=== PATIENT | female | born 1975 | race Caucasian/White ===

== ENCOUNTER 2016-11-21 19:07 | Emergency (ER) | payer OTHER ==
[~2016-11-21] VITALS: Ht 162.6 cm; Wt 73.0 kg
[2016-11-21 19:13] VITALS: Ht 162.6 cm; Wt 73.0 kg
[2016-11-21] MEDS ORDERED: FAMOTIDINE 20 MG TAB PO STA (20:56)
[2016-11-21] MEDS ORDERED: LIDOCAINE/MYLANTA 40 ML BTL PO STA (20:56)
--- NOTE | 2016-11-21 21:10 | ERD ---
ER Documentation Chief Complaint Date/Time DATE: 11/21/16 Chief Complaint Epigastric abdominal pain HPI The patient is a 41-year-old female who presents to the Emergency Department with complaint of epigastric abdominal pain. The patient reports that earlier today she was seen by her dentist to have tooth retraction of tooth #19. After returning home and eating, the patient had developed some dental pain, and therefore took two of her prescribed medications: ibuprofen 800 mg and Tylenol # 3. Then, approximately 30 minutes later, she took a dose of her Amoxicillin. The patient notes that shortly afterwards she developed a burning pain to her epigastric region of her abdomen. The pain is constant, but described as mild. She rates her current pain as 4-5 out of 10. She denies any associated nausea, vomiting or diarrhea. Denies any black or bloody stools. Denies dysuria, urinary frequency, urinary urgency, hesitancy, hematuria, flank pain. Denies headache, dizziness, weakness, fevers, sweats, chills. Denies history of similar symptoms in the past. No other complaints at this time. ROS All systems reviewed and are negative except as per history of present illness. Medications Home Meds Active Scripts Ranitidine Hcl* (Zantac*) 150 Mg Tablet, 150 MG PO BID Y for EPIGASTRIC PAIN, # 30 TAB Prov:ANNE COELLO PA-C 11/22/16 Allergies Allergies: Coded Allergies: No Known Allergy (Unverified , 11/21/16) PMhx/Soc Medical and Surgical Hx: pt denies Medical Hx History of Surgery: Yes (cholecysectomy) Anesthesia Reaction: No Hx Alcohol Use: No Hx Substance Use: No Hx Tobacco Use: No Smoking Status: Never smoker Physical Exam Vitals Vital Signs Date Time Temp Pulse Resp B/P Pulse Ox O2 Delivery O2 Flow Rate FiO2 11/22/16 00:27 98.7 53 20 120/60 100 Room Air 11/21/16 19:13 98.3 59 20 128/58 100 Physical Exam GENERAL: Well-developed, well-nourished, female, in no acute distress. HEENT: Head is normocephalic, atraumatic. No scleral pallor or icterus. Pupils equal, round and reactive to light. Conjunctiva pink. Moist mucous membranes. Clear oropharynx. No pharyngeal erythema or exudates. Tooth #19 s/p extraction. No bleeding. No swelling. No drainage. No trismus. No stridor. No excessive drooling. Phonation is normal. No submandibular swelling. No brawny induration. NECK: Supple. No masses, no tenderness, no lymphadenopathy. Trachea midline. RESPIRATORY: Lungs are clear to auscultation bilaterally. No rales, rhonchi or wheezing. Equal breath sounds. Normal expiratory effort. CARDIOVASCULAR: Regular rate and rhythm. S1 and S2 normal. Distal pulses are palpable, 2+ bilaterally. Capillary refill is less than 2 seconds. GASTROINTESTINAL: Abdomen is soft, nontender and nondistended. No guarding, no rebound tenderness. Normal bowel sounds. No gross peritonitis. Negative Rovsing' s sign. Negative Tariq's sign. No tenderness at McBurney's point. FLANK: No CVA tenderness. BACK: No midline tenderness. EXTREMITIES: No clubbing, cyanosis, or edema. Normal skin perfusion. Moving all extremities. Muscle tone is normal. No focal swelling or erythema. NEUROLOGIC: The patient is alert, awake, and oriented x 3. INTEGUMENT: Skin is intact. Warm and dry. No rashes, no petechiae present. Normal turgor. PSYCHIATRIC: Cooperative. Appropriate. Result Diagram: 11/21/16211511/21/162115 Results 24 hrs Laboratory Tests Test 11/21/16 21:16 White Blood Count 14.310^3/ul Red Blood Count 4.7010^6/ul Hemoglobin 13.6g/dl Hematocrit 40.9% Mean Corpuscular Volume 87.0fl Mean Corpuscular Hemoglobin 28.9pg Mean Corpuscular Hemoglobin Concent 33.3g/dl Red Cell Distribution Width 14.0% Platelet Count 04380^3/UL Mean Platelet Volume 8.9fl Neutrophils % 78.5% Lymphocytes % 12.7% Monocytes % 7.6% Eosinophils % 0.6% Basophils % 0.2% Nucleated Red Blood Cells % 0.0/100WBC Neutrophils # 11.210^3/ul Lymphocytes # 1.810^3/ul Monocytes # 1.110^3/ul Eosinophils # 0.110^3/ul Basophils # 0.010^3/ul Nucleated Red Blood Cells # 0.010^3/ul Urine Color YELLOW Urine Clarity SLIGHTLY CLOUDY Urine pH 5.0 Urine Specific [place] 1.030 Urine Ketones NEGATIVEmg/dL Urine Nitrite NEGATIVEmg/dL Urine Bilirubin NEGATIVEmg/dL Urine Urobilinogen NEGATIVEmg/dL Urine Leukocyte Esterase 3+[place]/ul Urine Microscopic RBC 1/HPF Urine Microscopic WBC 4/HPF Urine Squamous Epithelial Cells FEW/HPF Urine Bacteria FEW/HPF Urine Mucus MODERATE/HPF Urine Hemoglobin NEGATIVEmg/dL Urine Glucose NEGATIVEmg/dL Urine Total Protein 1+mg/dl Sodium Level 143mmol/L Potassium Level 4.7mmol/L Chloride Level 100mmol/L Carbon Dioxide Level 26mmol/L Anion Gap 22 Blood Urea Nitrogen 14mg/dl Creatinine 0.70mg/dl Glucose Level 106mg/dl Calcium Level 9.2mg/dl Total Bilirubin 0.5mg/dl Direct Bilirubin 0.00mg/dl Indirect Bilirubin 0.5mg/dl Aspartate Amino Transf (AST/SGOT) 132IU/L Alanine Aminotransferase (ALT/SGPT) 80IU/L Alkaline Phosphatase 72IU/L Total Protein 8.4g/dl Albumin 4.7g/dl Globulin 3.70g/dl Albumin/Globulin Ratio 1.27 Lipase 197U/L Current Medications Medications (Trade) Dose Ordered Sig/Kiki Route PRN Reason Start Time Stop Time Status Last Admin Dose Admin Famotidine (Pepcid) 20 mg ONCE STAT PO 11/21/16 20:56 11/21/16 20:57 DC 11/21/16 21:11 Miscellaneous Medication (Gi Cocktail (2)) 40 ml ONCE STAT PO 11/21/16 20:56 11/21/16 20:57 DC 11/21/16 21:11 Procedures/MDM DIAGNOSTIC TESTS AND INTERPRETATION: PROCEDURE: US right upper quadrant CLINICAL INDICATION: Abdominal pain TECHNIQUE: Multiple real-time images were acquired of the patient's right upper abdomen utilizing a high resolution transducer. COMPARISON: None available FINDINGS: Liver: Normal in size, contour and echogenicity. Normal directional blood flow is seen within the patent main portal vein. The maximum dimension estimated at 14 cm. Gallbladder: Findings are compatible with prior cholecystectomy Common bile duct: Normal; 4.0 mm. There is no evidence for choledocholithiasis. Right Kidney: Normal; maximum length measured at approximately 9.6 cm. Pancreas: Visualized portions are normal. The tail is partially obscured by bowel gas. IMPRESSION:Changes of prior cholecystectomy, otherwise unremarkable right upper quadrant ultrasound. Physician Geetha Date Time Electronically viewed and signed by Jose D Saunders Physician on 11/22/2016 00:07 EMERGENCY DEPARTMENT COURSE: The patient was stable throughout the ER course. She was given Pepcid and a GI cocktail. Laboratory work and diagnostic imaging was performed. Upon reassessment, the patient remained stable and stated that her symptoms had resolved. She had no episodes of emesis or diarrhea while in the emergency department. MEDICAL DECISION MAKING: This is a 41-year-old female presenting to the Emergency Department with complaint of epigastric abdominal pain that began after taking her recently prescribed medications of Tylenol #3, Ibuprofen and Amoxicillin today for the first time. On physical examination, her abdomen was noted to be soft, non-tender and non-distended, with no guarding, no rebound tenderness, no gross peritonitis. Vital signs were normal. Differential diagnosis includes, but is not limited to, gastroenteritis, gastritis, cholecystitis, cholangitis, choledocholithiasis, pancreatitis, perforated viscus , mesenteric ischemia, GERD, PUD, urinary tract infection, acute coronary syndrome, pyelonephritis, pneumonia, hepatitis, infectious diarrhea, IBD, aortic dissection, torsion, bowel obstruction, appendicitis, diverticulitis. No significant abnormalities noted on ultrasound imaging. Urinalysis did reveal 3+ urine leukocyte esterase with few bacteria, though patient insists that she is not experiencing any urinary symptoms. Given that she is already on antibiotics, will advise her to continue. After rest and administration of oral fluids and medications, the patient reports resolution of pain. Upon review and interpretation of the patient's presentation and overall ER course, I believe the patient's symptoms are most consistent with epigastric abdominal pain, uncertain etiology, though possibly from irritation secondary to all the new medications. I doubt cholecystitis, patient is s/p cholecystectomy. Doubt choledocholithiasis, no abnormalities or indication of disease process noted on ultrasound, negative Tariq's sign. Doubt acute coronary syndrome - symptoms and examination inconsistent. Doubt pancreatitis - clinical presentation inconsistent. Doubt perforated ulcer, patient has a non -surgical abdomen. Doubt small bowel obstruction, patient is passing flatus, abdomen is non-distended. Doubt appendicitis, patient has no McBurney's point tenderness, no guarding, non-surgical abdomen, no tenderness over the RLQ. Doubt diverticulitis, exam inconsistent. Doubt ischemic bowel, no pain out of proportion to examination. Doubt torsion, symptoms and examination inconsistent. At this time, the patient is in stable condition and therefore can be discharged home with prescriptions for Ranitidine, and strict return precautions for signs of deteriorating or worsening condition. She is advised to follow up with her primary care provider in 2-3 days for reevaluation and further management, or return to the ER sooner if symptoms worsen. I shared my medical decision making, plan, as well as the results with the patient at length and in great detail, and she verbally understands and agrees with the plan for further observation and care as an outpatient. At the time of discharge, all questions were answered. Departure Diagnosis: Primary Impression: Epigastric abdominal pain Condition: Stable Patient Instructions: Epigastric Pain (Uncertain Cause) Additional Instructions: Llame al doctor MAANA y wilber tien JORDY PARA DENTRO DE 2-3 VERGARA.Dgale a la secretaria que nosotros le instruimos hacer esta jordy.Avise o llame si calderon condicin se empeora antes de la jordy. Regresa aqui si peor o no mejor. ANNE COELLO PA-C Nov 21, 2016 21:10
[2016-11-21 21:31] LABS: BASOPHILS % 0.2 % (0.0-2.0); EOSINOPHILS # 0.1 10^3/ul (0.0-0.5); EOSINOPHILS % 0.6 % (0.0-7.0); HEMATOCRIT 40.9 % (37.0-47.0); HEMOGLOBIN 13.6 g/dl (12.0-16.0); LYMPHOCYTES # 1.8 10^3/ul (0.8-2.9); LYMPHOCYTES % 12.7 % (15.0-51.0); MEAN CORPUSCULAR HEMOGLOBIN 28.9 pg (29.0-33.0); MEAN CORPUSCULAR HGB CONC 33.3 g/dl (32.0-37.0); MEAN PLATELET VOLUME 8.9 fl (7.4-10.4); MONOCYTE # 1.1 10^3/ul (0.3-0.9); MONOCYTES % 7.6 % (0.0-11.0); NEUTROPHIL # 11.2 10^3/ul (1.6-7.5); NEUTROPHILS % 78.5 % (39.0-77.0); PLATELET COUNT 341 10^3/UL (140-415); WHITE BLOOD COUNT 14.3 10^3/ul (4.8-10.8)
[2016-11-21 21:37] LABS: ADD UMIC YES; UR ASCORBIC ACID NEGATIVE (NEGATIVE); UR BACTERIA FEW /HPF (NONE SEEN); UR BILIRUBIN (Dip) NEGATIVE (NEGATIVE); UR BLOOD (Dip) NEGATIVE (NEGATIVE); UR CLARITY SLIGHTLY CLOUDY (CLEAR); UR COLOR YELLOW (YELLOW); UR GLUCOSE (Dip) NEGATIVE (NEGATIVE); UR KETONES (Dip) NEGATIVE (NEGATIVE); UR LEUKOCYTE ESTERASE (Dip) 3+ Leu/ul (NEGATIVE); UR MUCUS MODERATE /HPF (NONE SEEN); UR NITRITE (Dip) NEGATIVE (NEGATIVE); UR RBC 1 /HPF (0-5); UR SQUAMOUS EPITHELIAL CELL FEW /HPF (FEW); UR TOTAL PROTEIN (Dip) 1+ mg/dl (NEGATIVE); UR UROBILINOGEN (Dip) NEGATIVE (NEGATIVE)
[2016-11-21 21:51] LABS: ALBUMIN 4.7 g/dl (3.3-4.9); ALBUMIN/GLOBULIN RATIO 1.27; BILIRUBIN,INDIRECT 0.5 mg/dl (0-1.1); BILIRUBIN,TOTAL 0.5 mg/dl (0.2-1.3); CALCIUM 9.2 mg/dl (8.4-10.2); CREATININE 0.7 mg/dl (0.44-1.00); POTASSIUM 4.7 mmol/L (3.5-5.1); TOTAL PROTEIN 8.4 g/dl (6.1-8.1)
--- NOTE | 2016-11-22 00:07 | RADRPT ---
PROCEDURE: US right upper quadrant CLINICAL INDICATION: Abdominal pain TECHNIQUE: Multiple real-time images were acquired of the patient's right upper abdomen utilizing a high resolution transducer. COMPARISON: None available FINDINGS: Liver: Normal in size, contour and echogenicity. Normal directional blood flow is seen within the p atent main portal vein. The maximum dimension estimated at 14 cm . Gallbladder: Findings are compatible with prior cholecystectomy Common bile duct: Normal; 4.0 mm. There is no evidence for choledocholithiasis. Right Kidney: Normal; maximum length measured at approximately 9.6 cm. Pancreas: Visualized portions are normal. The tail is partially obscured by bowel gas. RPTAT:HJJR IMPRESSION: Changes of prior cholecystectomy, otherwise unremarkable right upper quadrant ultrasound. Physician Geetha Date Time Electronically viewed and signed by Physician Geetha on 11/22/2016 00:07 /
[2016-11-22] MEDS ORDERED: RANI150T9 PO (00:22)
[2016-11-22 00:27] VITALS: BP 120/60; PULSE 53; RESP 20; TEMP 98.7
== END 2016-11-22 00:26 | disposition home or self-care (01) ==
LOC: FTE 19:07
DX: R10.13 Epigastric pain (principal)
CPT/HCPCS: 36415; 76705; 80053; 81001; 83690; 85025